=== PATIENT | male | born 1990 | race Caucasian/White ===

== ENCOUNTER 2021-09-01 03:09 | Emergency (ER) | payer OTHER | END 2021-09-01 04:29 | disposition home or self-care (01) | LOC: DL.ED 03:09 | DX: S90.32XA Contusion of left foot, initial encounter (principal); V20.4XXA Motorcycle driver injured in collision with pedestrian or animal in traffic accident, initial encounter; Y92.410 Unspecified street and highway as the place of occurrence of the external cause | CPT/HCPCS: 73630-LT; 99282; 99283 ==